=== PATIENT | male | born 1990 | race Caucasian/White ===

== ENCOUNTER 2017-02-11 19:48 | Emergency (ER) | payer SELFPAY ==
--- NOTE | 2017-02-12 19:29 | ER ---
ADMIT: 02/11/2017 RM/LOC: ER [facility] MR#: [id number] [address] [place] [address] [place] [address] Emergency Room Report SEX: M AGE: 26 : 1990 DATE: 02/11/2017 The patient is a 26-year-old male with past medical history of asthma and ex- meth user, who came to the ER with chief complaint of right upper teeth and gums pain for some weeks. The patient states he has a history of dental problem and has some dental caries but has no dentist and has not been followed up. The patient states the pain is sharp and continuous and increases with drinking cold water or tapping on the tooth. The patient denies any change in the voice or any difficulty breathing. On physical examination, the patient was afebrile, in [id number] distress. There is no obvious swelling in the throat. Trachea is midline. Inside the mouth, there are no periodontal abscesses. There are some swelling and erythema of the gingiva and of the right upper teeth and right upper tooth, and possibly to three also dental caries, which pain elicits and increases with tapping of the tooth. Oropharynx is normal. The patient has no drooling and no stridor. Base of the tongue is not elevated and there is no swelling of the submandibular area. The rest of the physical exam is noncontributory. The patient is allergic to penicillin, received a dose of clindamycin per [employer] recommendations, was just received also Percocet in the ER. The patient was discharged with a prescription for clindamycin, [place], follow up with the dentist as soon as possible tomorrow. The patient agreed to the plan, was discharged home. Daljit Vides MD/ rae JOB #: [id number] CC: Daljit Vides MD, Attending Physician Kamila Irvin MD, Family Physician
== END 2017-02-11 20:48 | disposition home or self-care (01) ==
LOC: ER 19:48
DX: K05.10 Chronic gingivitis, plaque induced (principal); K02.9 Dental caries, unspecified; J45.909 Unspecified asthma, uncomplicated; F12.10 Cannabis abuse, uncomplicated; Z88.0 Allergy status to penicillin

== ENCOUNTER 2017-02-26 14:25 | Emergency (ER) | payer SELFPAY ==
--- NOTE | 2017-03-16 11:50 | ER ---
ADMIT: 02/26/2017 RM/LOC: ER [facility] MR#: [id number] [address] [place] [address] [address] [place] [address] Emergency Room Report SEX: M AGE: 26 : 1990 DATE: 02/26/2017 ADDENDUM: A 26-year-old white male [place] hitting his left elbow. X-ray does not show any fracture. He has some swelling and a little bit of an effusion there. We Colten wrapped this, put a nonstick Telfa where there was an abrasion, should keep this on. Ice. Motrin. He should follow up later in the week if he is not getting better. CONDITION ON DISCHARGE: Fair. Ezekiel Goyal MD/ rae JOB #: [id number] CC: Ezekiel Goyal MD, Attending Physician
== END 2017-02-26 15:40 | disposition home or self-care (01) ==
LOC: ER 14:25
DX: S53.432A Radial collateral ligament sprain of left elbow, initial encounter (principal); S53.442A Ulnar collateral ligament sprain of left elbow, initial encounter; F17.200 Nicotine dependence, unspecified, uncomplicated; Z79.899 Other long term (current) drug therapy; W01.198A Fall on same level from slipping, tripping and stumbling with subsequent striking against other object, initial encounter; Y92.830 Public park as the place of occurrence of the external cause